=== PATIENT | female | born 1990 | race Caucasian/White ===

== ENCOUNTER 2016-10-19 08:33 | Outpatient (CLI) | payer OTHER ==
--- NOTE | 2016-10-20 07:46 | RAD ---
TWO VIEWS LEFT CLAVICLE. INDICATION: Prior injury, followup. FINDINGS: No prior imaging comparison available. There is a displaced fracture with override of fracture frag ments centered at the mid aspect of the left clavicle. Mild cephalad angulation. AC joint is maint ained. IMPRESSION: Displaced mid shaft left clavicular fracture. POS: [facility]
== END 2016-10-19 08:34 | disposition home or self-care (01) ==
LOC: NAV RAD 08:33
PROVIDERS: ATTEND Surgery
DX: S42.002D Fracture of unspecified part of left clavicle, subsequent encounter for fracture with routine healing (principal)